=== PATIENT | male | born 1985 | race African-American/Black ===

== ENCOUNTER 2017-11-17 09:40 | Inpatient (IN) | payer SELFPAY ==
[2017-11-17] MEDS: MAGNESIUM SULFATE 2GM 50 ML IV (12:30)
[2017-11-17 14:36] LABS: TROPONINI 0.414 ng/mL (0.000-0.055)
[2017-11-17] MEDS: HALOPERIDOL LACTATE 5 MG/ML VIAL. IVP (19:30)
[2017-11-17] MEDS: SODIUM BICARBONATE VIAL 100 MEQ in IV DEXTROSE 5% 1,000 ML IV (20:00)
[2017-11-17] MEDS: LABETALOL 20 MG/4 ML DISP.SYRIN. IVP (23:05)
[2017-11-17 23:22] LABS: MRSA BY PCR Negative (Negative)
[2017-11-18] MEDS: SODIUM BICARBONATE VIAL 100 MEQ in IV DEXTROSE 5% 1,000 ML IV ×3 (02:08→14:23)
[2017-11-18 03:47] LABS: ADD MAN DIFF? NO
[2017-11-18 04:09] LABS: ANION GAP 8 (6-14); BLOOD UREA NITROGEN 14 mg/dL (8-26); CALCIUM 8.3 mg/dL (8.5-10.1); CARBON DIOXIDE 33 mmol/L (21-32); CHLORIDE 100 mmol/L (98-107); CREATININE 1.3 mg/dL (0.7-1.3); GLUCOSE 118 mg/dL (70-99); MAGNESIUM 2.1 mg/dL (1.8-2.4); POTASSIUM 3.1 mmol/L (3.5-5.1); SODIUM 141 mmol/L (136-145)
[2017-11-18 04:10] LABS: BASO % 0 % (0-3); EOS % 0 % (0-3); HEMATOCRIT 39.4 % (39.0-53.0); HEMOGLOBIN 13.6 g/dL (13.0-17.5); LYMPH % 19 % (24-48); MEAN CORPUSCULAR HEMOGLOBIN 31 pg (25-35); MEAN CORPUSCULAR HGB CONC 35 g/dL (31-37); MEAN CORPUSCULAR VOLUME 90 fL (79-100); MONO # 1.3 x10^3/uL (0.0-1.1); MONO % 12 % (0-9); NEUT # 7.1 x10^3uL (1.8-7.7); NEUT % 68 % (31-73); PLATELET COUNT 207 x10^3/uL (140-400); RED BLOOD COUNT 4.39 x10^6/uL (4.30-5.70); WHITE BLOOD COUNT 10.4 x10^3/uL (4.0-11.0)
[2017-11-18 04:22] LABS: CKMB MASS 5.5 ng/mL (0.0-3.6)
[2017-11-18 04:23] LABS: CKMB INDEX 0.2 % (0-4); CREATINE KINASE 3491 U/L (39-308)
[2017-11-18 04:28] LABS: TROPONINI 0.109 ng/mL (0.000-0.055)
[2017-11-18] MEDS: POTASSIUM CHLORIDE 20 MEQ TABLET.ER. PO (10:47)
[2017-11-18] MEDS: amLODIPine BESYLATE 10 MG TABLET PO (10:48)
[2017-11-18 14:06] LABS: CREATINE KINASE 3125 U/L (39-308)
== END 2017-11-18 15:47 | disposition home or self-care (01) | DRG 683 ==
LOC: 1 WEST ICU 09:40
PROVIDERS: Internal Medicine
DX: N17.9 Acute kidney failure, unspecified (principal); M62.82 Rhabdomyolysis; F15.10 Other stimulant abuse, uncomplicated; T50.995A Adverse effect of other drugs, medicaments and biological substances, initial encounter; Z82.49 Family history of ischemic heart disease and other diseases of the circulatory system; Y92.89 Other specified places as the place of occurrence of the external cause; R41.82 Altered mental status, unspecified
CPT/HCPCS: 36415; 80048; 82550; 82553; 83735; 84484; 85025; 87641; 93005; 93306; J1630; J2060; J3490